=== PATIENT | female | born 1995 | race Caucasian/White ===

== ENCOUNTER 2020-05-13 18:39 | Emergency (ER) | payer SELFPAY ==
[~2020-05-13] VITALS: Ht 160 cm; Wt 109.1 kg
[2020-05-13 18:46] VITALS: BP 134/86; PULSE 109; TEMP 99.6
== END 2020-05-13 19:45 | disposition left against medical advice (07) ==
LOC: COL.ER 18:39
DX: M54.42 Lumbago with sciatica, left side (principal)